=== PATIENT | female | born 1980 | race Caucasian/White ===

== ENCOUNTER 2024-12-01 00:40 | Day surgery (SDC) | payer OTHER, SELFPAY ==
--- OUTSIDE RECORDS SUMMARY | 2015-08-15 19:00 | XMS_ITS | Continuity of Care Document ---
Author Organization [facility] Address [address] [facility] [place] [address] Phone Care Team Providers Care Count Team Clerk Name Role Phone MD FOY GILBERT Unavailable Unavailable Advance Directives Directive Yes / No Effective Date File Name No Information Encounters Encounter Description Practice Location Reason(s) For Visit Diagnoses Date Provider Providers Copied on Encounter [facility], [address] [facility], [place], [place], [id number], [place] tel:[phone] [facility] INPATIENT No Information MD VALENTINA FOY. [address] [place] [address], [id number], [place]. tel:[phone] Referring Provider: AUTUMN Hernandez, [address] [place], [address]. tel:[phone] Family History Family Member Type Diagnosis Age At Onset No Information Payers Payer name Insurance type Covered libertarian ID Authoriza tigisel(s) [facility] PPO [id number] Social History Type Description Quantity Date Captured Comments Sex Female Smoking Status No Information Chief Complaint And Reason For Visit No Information History Of Present Illness Encounter Date Complaint History Of Prese nt Illness No Information Instructions Date Instruction Additional Infor mation No Information Assessments Type Assessment Date No Information
[2024-11-22 10:23] VITALS: BMI 22.6
--- NOTE | 2024-11-22 10:30 | PC.NURSE ---
Report to the Outpatient Waiting Room, entrance under the green pavilion located off [facility], at time __1000_ on date _12/01/24. Planned Procedure Time: __1200.? Time changes happen often and if your time is changed the preop area will call you the afternoon before. - You and your visitor will be asked to self-screen and do not enter if you have any COVID symptoms. Please call surgeon if you need to reschedule. - A mask is optional within the hospital at this time. Patients may have clear liquids (water, carbonated beverages, clear teas, apple juice) until 3 hours prior to surgery with a maximum of 20 ounces. - No food from midnight until time of surgery and no smoking, or chewing tobacco (or any form of nicotine). No chewing gum, candy or mints. - Infants may have breast milk until 4 hours before surgery, infant formula 6 hours prior to surgery. - Children will be allowed to drink immediately following surgery.? If applicable, please bring a bottle or sippy cup to assist with drinking. Juice, water, soda, and popsicles are readily available.? For infants on formula, please bring formula the day of surgery.? Pacifiers are allowed. Take only the following medications with a SIP of water on the morning of surgery: NONE DO NOT STOP ANY OF YOUR OTHER PRESCRIPTION MEDICATIONS PRIOR TO SURGERY EXCEPT THE FOLLOWING Hold all vitamins and supplements for 3 days per anesthesiologist. Medications to discontinue per physician Date to take last dose Please no make-up, nail syriac, hairspray, perfume, deodorant, or body powder the day of surgery.? No jewelry (including any body piercings) or valuables the day of surgery, leave them at home.? Please take a shower or bath the night before, or the morning of, surgery with an antibacterial soap.? Wear comfortable, loose fitting clothing.? Children are encouraged to wear pajamas. - Jewelry must be removed prior to entering the operating room.? Rings and piercings that are not removed may be cut off. - The hospital will not accept responsibility for valuables.? - Please leave all valuables, including medications, at home the day of surgery. If you are going home after surgery, a licensed hydraulic lift driver must drive you home.? - NO public transportation without another adult if you receive anesthesia. - We recommend that an adult stay with you for 24 hours following discharge. - We also recommend that you do not drive, make important decision, drink alcoholic beverages, or take any drugs that were not prescribed by your health care provider for at least 24 hours after your discharge time. For Pediatric surgeries, we recommend two adults accompany the child home. Follow any additional instructions given to you from your surgeon. Telephone instructions given to PATIENT_and asked if any additional questions and then verbalized understanding. Patient advised to call surgeon office or pre surgery nurse liaison [phone] if any additional questions.
--- OUTSIDE RECORDS SUMMARY | 2024-11-29 10:34 | XMS_ITS | Encounter Summary ---
Author Organization [facility] Healthcare Address [address] [place] [address] Care Team Providers Care Custodial Manager Name Role Phone Aldo Flowers Primary Care Provider [phone] Reason for Referral * MRI/CAT/PET Scan (Routine) - Closed Specialty Diagnoses / Procedures Referred By Tiffanie knowles Referred To Contact Radiology Diagnoses Dense breast tissue on mammogram, unspecified type Procedures MRI BREAST WWO CONTRAST Aldo Flowers PA [address] [place] [address] DR NUNEZ [address] [place] [address] Phone: tel: fax: [address] [phone] Referral ID Status Reason Start Date Expiration Date Visits Re quested Visits Authorized [id number] Closed 11/15/2024 01/13/2025 1 1 Reason for Visit * MRI/CAT/PET Scan (Routine) - Closed Specialty Diagnoses / Procedures Referred By Tiffanie knowles Referred To Contact Radiology Diagnoses Dense breast tissue on mammogram, unspecified type Procedures MRI BREAST WWO CONTRAST Aldo Flowers PA [address] [place] [address] DR NUNEZ [address] [place] [address] Phone: tel: fax: [address] [phone] Referral ID Status Reason Start Date Expiration Date Visits Re quested Visits Authorized [id number] Closed 11/15/2024 01/13/2025 1 1 Encounter Details Date Type Department Care Team (Latest Contact Info) Description 11/29/2024 10:34 AM CDT - 11/29/2024 11:59 PM CDT Hospital Encounter [facility] [address] [place] [address] Dense breast tissue on mammogram, unspecified type Discharge Disposition: Discharge to home or self care Social History Tobacco Use Types Packs/Day Years Used Date Smoking Tobacco: Former Cigarettes Q uit: 07/25/2022 Alcohol Use Standard Drinks/Week Comments Yes 1 (1 standard drink = 0.6 oz pur e alcohol) monthly or less Humiliation, Afraid, Rape, and Kick questionnair e Answer Date Recorded Fear of Current or Ex-Partner No Emotionally Abused No 04/25/2020 Physically Abused No 04/25/2020 Sexually Abused No 04/25/2020 Social Connection and Isolation Panel Answer Date Recorded Frequency of Communication with Friends and Fami ly Patient declined 04/25/2020 Frequency of Social Gatherings with Friends and Family Patient declined 04/25/2020 Attends Confucianism Services Patient declined 03/31 Active Member of Clubs or Organizations Patient declined 04/25/2020 Attends Club or Organization Meetings Patient de clined 04/25/2020 Marital Status Patient declined 04/25/2020 AUDIT-C Answer Date Recorded Q1: How often do you have a drink containing alc ohol? Monthly or less 07/15/2023 Q2: How many drinks containi ng alcohol do you have on a typical day when you are drinking? 1 or 2 07/15/2023 Q3: How often do you have si x or more drinks on one occasion? Never 07/15/2023 PHQ-2 Answer Date Recorded PHQ-2 Total Score (If total score is 3 or more points, staff should administer the PHQ-9) 0 07/15/2023 [facility] [place] [facility] - Occupational Stress Questionnaire Answer Date Recorded Feeling of Stress Very much 04/25/2020 Exercise Vital Sign Answer Date Recorde d Days of Exercise per Week 0 days 01/27/ 2021 Minutes of Exercise per Session 0 min 04/25/2020 Hunger Vital Sign Answer Date Recorded Worried About Running Out of Food in the Last Ye ar Never true 04/25/2020 Ran Out of Food in the Last Year Never true 04/25/2020 PRAPARE - Transportation Answer Date Re corded Lack of Transportation (Medical) No 04/25/2020 Lack of Transportation (Non-Medical) No 04/25/2020 Comments No Sex and Gender Information Value Date Recorded Sex Assigned at Not on file Legal Sex Female 8:56 PM MANAGER VIDEO GAMES Gender Identity Female 02/18/2023 8:40 AM MANAGER VIDEO GAMES Sexual Orientation Choose not to disclose 2022 8:40 AM MANAGER VIDEO GAMES documented as of this encounter Medications at Time of Discharge escitalopram (LEXAPRO) 10 mg tabletIndications :Prolonged grief disorder,Moderate episode of recurrent major depressive disorder (HCC) Take 1 tablet (10 mg total) by mouth daily 90 tablet 3 08/12/2022 documented as of this encounter Discharge Disposition Disposition Code Departure Means Destination Discharge to home or self care documented in this encounter Plan of Treatment Pending Results Name Type Priority Associated Diagnoses Date /Time MRI BREAST WWO CONTRAST Imaging Schedule Routine, Read Routine (OP Routine) Dense breast tissue on mammogram, unspecified type 11/29/2024 12:48 PM CDT Scheduled Orders Name Type Priority Associated Diagnoses Orde r Schedule MRI BREAST WWO CONTRAST Imaging Schedule Routine, Read Routine (OP Routine) Dense Breast Tissue On Mammogram, Unspecified Type Once for 1 Occurrences starting 11/29/2024 until 11/29/2024 documented as of this encounter Visit Diagnoses Diagnosis Dense breast tissue on mammogram, unspecified type documented in this encounter Administered Medications Inactive Administered Medications - up to 3 most recent administrations Medication Order MAR Action Action Date Dose Rate Site gadoterate meglumine injection 15 mL 15 mL, intravenous, Once in imaging, contrast, Starting on Thu11/29/24 at 1213, For 1 dose Contrast Given 11/29/2024 12:37 PM CDT 11 mL sodium chloride 0.9% flush 50 mL 50 mL, intravenous, Once in imaging, line care, Starting on Thu11/29/24 at 1214, For 1 dose Given 11/29/2024 12:37 PM CDT 50 mL documented in this encounter Care Teams Custodial Manager Relationship Specialty Start Date End Date Aldo Flowers PA PCP - General Family Medicine 09/16/22 documented as of this encounter
[2024-12-01] VITALS (7 sets, daily range): BP systolic 111–132; BP diastolic 68–82; PULSE 77–106; RESP 14–20; TEMP 36.7–37.2; O2SAT 98–100
--- OUTSIDE RECORDS SUMMARY | 2024-12-01 00:43 | XMS_ITS | Encounter Summary ---
Author Organization [facility] Address [address] [place] [address] Care Team Providers Care Jewel Staker Name Role Phone Lavinia Tran MD Primary Care Provider Unava ilable Encounter Details Date Type Department Care Team (Late st Contact Info) Description 12/25/2004 Outpatient Historical [facility] [address] [place] [phone] Lavinia Tran [address] [place] [address] Social History Tobacco Use Types Packs/Day Years Used Date Smoking Tobacco: Never Assessed Comments Unknown Sex and Gender Information Value Date Recorded Sex Assigned at Not on file Legal Sex Female 5:00 AM SEALING AND CANCELING MACHINE OPERATOR Gender Identity Not on file Sexual Orientation Not on file documented as of this encounter Plan of Treatment Not on file documented as of this encounter Visit Diagnoses Not on filedocumented in this encounter Care Teams Jewel Staker Relationship Specialty Start Date End Date Lavinia Tran MD PCP - General 11/14/04 documented as of this encounter
--- OUTSIDE RECORDS SUMMARY | 2024-12-01 00:43 | XMS_ITS | Encounter Summary ---
Author Organization [facility] Address [address] [place] [address] Care Team Providers Care Head Athletic Trainer/Strength Coach Name Role Phone Lavinia Tran MD Primary Care Provider Unava ilable Encounter Details Date Type Department Care Team (Late st Contact Info) Description 12/16/2004 [facility] Lavinia Tran [address] [place] [address] Social History Tobacco Use Types Packs/Day Years Used Date Smoking Tobacco: Never Assessed Comments Unknown Sex and Gender Information Value Date Recorded Sex Assigned at Not on file Legal Sex Female 5:00 AM SUPERVISOR BRIAR SHOP Gender Identity Not on file Sexual Orientation Not on file documented as of this encounter Plan of Treatment Not on file documented as of this encounter Visit Diagnoses Not on filedocumented in this encounter Care Teams Head Athletic Trainer/Strength Coach Relationship Specialty Start Date End Date Lavinia Tran MD PCP - General 11/14/04 documented as of this encounter
--- OUTSIDE RECORDS SUMMARY | 2024-12-01 00:43 | XMS_ITS | Encounter Summary ---
Author Organization [facility] Address [address] [place] [address] Care Team Providers Care Business Solutions Analyst Name Role Phone Lavinia Tran MD Primary Care Provider Unava ilable Encounter Details Date Type Department Care Team (Late st Contact Info) Description 03/05/2005 Outpatient Historical [facility] Lavinia Tran [address] [place] [address] SUPERVIS OTHER NORMAL PREG (Primary Dx) Social History Tobacco Use Types Packs/Day Years Used Date Smoking Tobacco: Never Assessed Comments Unknown Sex and Gender Information Value Date Recorded Sex Assigned at Not on file Legal Sex Female 5:00 AM MARITIME GUARD Gender Identity Not on file Sexual Orientation Not on file documented as of this encounter Plan of Treatment Not on file documented as of this encounter Visit Diagnoses Diagnosis Supervision of other normal - Primary documented in this encounter Care Teams Business Solutions Analyst Relationship Specialty Start Date End Date Lavinia Tran MD PCP - General 11/14/04 documented as of this encounter
--- OUTSIDE RECORDS SUMMARY | 2024-12-01 00:43 | XMS_ITS | Encounter Summary ---
Author Organization [facility] Address [address] [place] [address] Care Team Providers Care Seals Engraver Name Role Phone Lavinia Tran MD Primary Care Provider Unava ilable Encounter Details Date Type Department Care Team (Late st Contact Info) Description 10/01/2004 Outpatient Historical [facility] [address] [place] [address] Costa Garcia MD [address] [address] Social History Tobacco Use Types Packs/Day Years Used Date Smoking Tobacco: Never Assessed Comments Unknown Sex and Gender Information Value Date Recorded Sex Assigned at Not on file Legal Sex Female 5:00 AM DCS ENGINEER Gender Identity Not on file Sexual Orientation Not on file documented as of this encounter Plan of Treatment Not on file documented as of this encounter Visit Diagnoses Not on filedocumented in this encounter Care Teams Seals Engraver Relationship Specialty Start Date End Date Lavinia Tran MD PCP - General 11/14/04 documented as of this encounter
--- OUTSIDE RECORDS SUMMARY | 2024-12-01 00:43 | XMS_ITS | Encounter Summary ---
Author Organization [facility] Address [address] [place] [address] Care Team Providers Care Barrel Lapper Name Role Phone Lavinia Tran MD Primary Care Provider Unava ilable Encounter Details Date Type Department Care Team (Late st Contact Info) Description 02/19/2005 Outpatient Historical [facility] [address] [place] [phone] Lavinia Tran [address] [place] [address] Social History Tobacco Use Types Packs/Day Years Used Date Smoking Tobacco: Never Assessed Comments Unknown Sex and Gender Information Value Date Recorded Sex Assigned at Not on file Legal Sex Female 5:00 AM RODENT CONTROL WORKER Gender Identity Not on file Sexual Orientation Not on file documented as of this encounter Plan of Treatment Not on file documented as of this encounter Visit Diagnoses Not on filedocumented in this encounter Care Teams Barrel Lapper Relationship Specialty Start Date End Date Lavinia Tran MD PCP - General 11/14/04 documented as of this encounter
--- OUTSIDE RECORDS SUMMARY | 2024-12-01 00:43 | XMS_ITS | Encounter Summary ---
Author Organization [facility] Address [address] [place] [address] Care Team Providers Care Roving Teller Name Role Phone Lavinia Tran MD Primary Care Provider Unava ilable Encounter Details Date Type Department Care Team (Late st Contact Info) Description 10/02/2004 Outpatient Historical [facility] [address] Lavinia Tran [address] [place] [address] SUPERVIS OTHER NORMAL PREG (Primary Dx) Social History Tobacco Use Types Packs/Day Years Used Date Smoking Tobacco: Never Assessed Comments Unknown Sex and Gender Information Value Date Recorded Sex Assigned at Not on file Legal Sex Female 5:00 AM CIRCULAR SAW EDGE FUSER Gender Identity Not on file Sexual Orientation Not on file documented as of this encounter Plan of Treatment Not on file documented as of this encounter Visit Diagnoses Diagnosis Supervision of other normal - Primary documented in this encounter Care Teams Roving Teller Relationship Specialty Start Date End Date Lavinia Tran MD PCP - General 11/14/04 documented as of this encounter
--- OUTSIDE RECORDS SUMMARY | 2024-12-01 00:43 | XMS_ITS | Encounter Summary ---
Author Organization [facility] Address [address] [place] [address] Care Team Providers Care Picu Nurse Name Role Phone Lavinia Tran MD Primary Care Provider Unava ilable Encounter Details Date Type Department Care Team (Latest Contact Info) Description 03/18/2005 Outpatient Historical [facility] [address] Costa Garcia MD [address] [place] [address] PREG STATE, INCIDENTAL (Primary Dx) Social History Tobacco Use Types Packs/Day Years Used Date Smoking Tobacco: Never Assessed Comments Unknown Sex and Gender Information Value Date Recorded Sex Assigned at Not on file Legal Sex Female 5:00 AM CLIENT ENGAGEMENT SPECIALIST Gender Identity Not on file Sexual Orientation Not on file documented as of this encounter Plan of Treatment Not on file documented as of this encounter Visit Diagnoses Diagnosis state, incidental- Primary documented in this encounter Care Teams Picu Nurse Relationship Specialty Start Date End Date Lavinia Tran MD PCP - General 11/14/04 documented as of this encounter
--- OUTSIDE RECORDS SUMMARY | 2024-12-01 00:43 | XMS_ITS | Encounter Summary ---
Author Organization [facility] Address [address] [place] [address] Care Team Providers Care Time Clock Inspector Name Role Phone Lavinia Tran MD Primary Care Provider Unava ilable Encounter Details Date Type Department Care Team (Late st Contact Info) Description 02/05/2005 Outpatient Historical [facility] [address] [place] [phone] Lavinia Tran [address] [place] [address] Social History Tobacco Use Types Packs/Day Years Used Date Smoking Tobacco: Never Assessed Comments Unknown Sex and Gender Information Value Date Recorded Sex Assigned at Not on file Legal Sex Female 5:00 AM CARD CLEANER Gender Identity Not on file Sexual Orientation Not on file documented as of this encounter Plan of Treatment Not on file documented as of this encounter Visit Diagnoses Not on filedocumented in this encounter Care Teams Time Clock Inspector Relationship Specialty Start Date End Date Lavinia Tran MD PCP - General 11/14/04 documented as of this encounter
--- OUTSIDE RECORDS SUMMARY | 2024-12-01 00:43 | XMS_ITS | Encounter Summary ---
Author Organization [facility] Address [address] [place] [address] Care Team Providers Care Head Operator Name Role Phone Lavinia Tran MD Primary Care Provider Unava ilable Encounter Details Date Type Department Care Team (Late st Contact Info) Description 01/30/2005 Outpatient Historical [facility] [address] [place] [address] Li Carreno MD [address] [place] [address] Social History Tobacco Use Types Packs/Day Years Used Date Smoking Tobacco: Never Assessed Comments Unknown Sex and Gender Information Value Date Recorded Sex Assigned at Not on file Legal Sex Female 5:00 AM NURSING PROJECT COORDINATOR Gender Identity Not on file Sexual Orientation Not on file documented as of this encounter Plan of Treatment Not on file documented as of this encounter Visit Diagnoses Not on filedocumented in this encounter Care Teams Head Operator Relationship Specialty Start Date End Date Lavinia Tran MD PCP - General 11/14/04 documented as of this encounter
--- OUTSIDE RECORDS SUMMARY | 2024-12-01 00:43 | XMS_ITS | Encounter Summary ---
Author Organization [facility] Address [address] [place] [address] Care Team Providers Care Fretted Instrument Maker Hand Name Role Phone Lavinia Tran MD Primary Care Provider Unava ilable Encounter Details Date Type Department Care Team (Late st Contact Info) Description 03/18/2005 Outpatient Historical [facility] Costa Garcia MD [address] [place] [phone] SUPERVIS OTHER NORMAL PREG (Primary Dx) Social History Tobacco Use Types Packs/Day Years Used Date Smoking Tobacco: Never Assessed Comments Unknown Sex and Gender Information Value Date Recorded Sex Assigned at Not on file Legal Sex Female 5:00 AM GASOLINE TRUCK OPERATOR Gender Identity Not on file Sexual Orientation Not on file documented as of this encounter Plan of Treatment Not on file documented as of this encounter Visit Diagnoses Diagnosis Supervision of other normal - Primary documented in this encounter Care Teams Fretted Instrument Maker Hand Relationship Specialty Start Date End Date Lavinia Tran MD PCP - General 11/14/04 documented as of this encounter
--- OUTSIDE RECORDS SUMMARY | 2024-12-01 00:43 | XMS_ITS | Encounter Summary ---
Author Organization [facility] Address [address] [place] [address] Care Team Providers Care Winding Department Supervisor Name Role Phone Lavinia Tran MD Primary Care Provider Unava ilable Encounter Details Date Type Department Care Team (Late st Contact Info) Description 11/27/[address] [facility] [address] [place] [address] Bart De La Fuente MD NO ADDRESS ON FILE Social History Tobacco Use Types Packs/Day Years Used Date Smoking Tobacco: Never Assessed Comments Unknown Sex and Gender Information Value Date Recorded Sex Assigned at Not on file Legal Sex Female 5:00 AM BRIMMER BLOCKER Gender Identity Not on file Sexual Orientation Not on file documented as of this encounter Plan of Treatment Not on file documented as of this encounter Visit Diagnoses Not on filedocumented in this encounter Care Teams Winding Department Supervisor Relationship Specialty Start Date End Date Lavinia Tran MD PCP - General 11/14/04 documented as of this encounter
--- OUTSIDE RECORDS SUMMARY | 2024-12-01 00:43 | XMS_ITS | Encounter Summary ---
Author Organization [facility] Address [address] [place] [address] Care Team Providers Care Chief Controller Center Name Role Phone Lavinia Tran MD Primary Care Provider Unava ilable Encounter Details Date Type Department Care Team (Late st Contact Info) Description 01/30/2005 Outpatient Historical [facility] Lavinia Tran [address] [place] [address] SCREENING NEC (Primary Dx) Social History Tobacco Use Types Packs/Day Years Used Date Smoking Tobacco: Never Assessed Comments Unknown Sex and Gender Information Value Date Recorded Sex Assigned at Not on file Legal Sex Female 5:00 AM SCRAP HOIST OPERATOR Gender Identity Not on file Sexual Orientation Not on file documented as of this encounter Plan of Treatment Not on file documented as of this encounter Visit Diagnoses Diagnosis Other screening- Primary Other specified screening documented in this encounter Care Teams Chief Controller Center Relationship Specialty Start Date End Date Lavinia Tran MD PCP - General 11/14/04 documented as of this encounter
--- OUTSIDE RECORDS SUMMARY | 2024-12-01 00:43 | XMS_ITS | Encounter Summary ---
Author Organization [facility] Address 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 Gender Identity Not on file Sexual Orientation Not on file documented as of this encounter Plan of Treatment Not on file documented as of this encounter Procedures Procedure Name Priority Date/Time Associated Diagnosis Comments GLUCOSE TOLERANCE 1 HR GESTATIONAL Routine 01/22/2005 1:15 PM CDT HEMOGLOBIN AND HEMATOCRIT Routine 01/22/2005 1:15 PM CDT documented in this encounter Results * HEMOGLOBIN AND HEMATOCRIT (01/22/2005 1:15 PM CDT) HEMOGLOBIN 12.1 11.8 - 14.8 g/dL INTERFACE SYSTEM HEMATOCRIT 35.7 35.5 - 44.0 % INTERFACE SYSTEM 01/22/2005 1:15 PM CDT Maria Fernanda Theodosia HEMATOLOGY ORDERABLES Final Res ult INTERFACE SYSTEM Refer to clinic/hospital department * GLUCOSE TOLERANCE 1 HR GESTATIONAL (01/22/2005 1:15 PM CDT) GLUCOSE 1 HR OBSTETRIC 104 65 - 139 mg/dL INTERFACE SYSTEM 01/22/2005 1:15 PM CDT Maria Fernanda Theodosia CHEMISTRY ORDERABLES Final Resu lt Performing Organization Address City/[facility] Co de Phone Number INTERFACE SYSTEM Refer to clinic/hospital department documented in this encounter Visit Diagnoses Diagnosis state, incidental- Primary documented in this encounter Care Teams Thermodynamics Professor Relationship Specialty Start Date End Date Lavinia Tran MD PCP - General 11/14/04 documented as of this encounter
--- OUTSIDE RECORDS SUMMARY | 2024-12-01 00:43 | XMS_ITS | Encounter Summary ---
Author Organization Address 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
--- OUTSIDE RECORDS SUMMARY | 2024-12-01 00:43 | XMS_ITS | Encounter Summary ---
Author Organization [facility] Address [address] [place] [address] Care Team Providers Care Service Order Clerk Name Role Phone Lavinia Tran MD Primary Care Provider Unava ilable Encounter Details Date Type Department Care Team (Late st Contact Info) Description 12/05/2004 Outpatient Historical [facility] and [facility] [address] [place] [address] [place] [address] Li Carreno MD [address] [place] [address] Social History Tobacco Use Types Packs/Day Years Used Date Smoking Tobacco: Never Assessed Comments Unknown Sex and Gender Information Value Date Recorded Sex Assigned at Not on file 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
--- OUTSIDE RECORDS SUMMARY | 2024-12-01 00:43 | XMS_ITS | Encounter Summary ---
Author Organization [facility] Address 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
--- OUTSIDE RECORDS SUMMARY | 2024-12-01 00:43 | XMS_ITS | Encounter Summary ---
Author Organization [facility] Address [address] [place] [address] Care Team Providers Care Presidential Helicopter Crew Chief Name Role Phone Lavinia Tran MD Primary Care Provider Unava ilable Encounter Details Date Type Department Care Team (Late st Contact Info) Description 03/05/2005 Outpatient Historical [facility] [address] [place] [phone] Lavinia Tran [address] [place] [address] Social History Tobacco Use Types Packs/Day Years Used Date Smoking Tobacco: Never Assessed Comments Unknown Sex and Gender Information Value Date Recorded Sex Assigned at Not on file 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
--- OUTSIDE RECORDS SUMMARY | 2024-12-01 00:43 | XMS_ITS | Encounter Summary ---
Author Organization [facility] Address 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
--- OUTSIDE RECORDS SUMMARY | 2024-12-01 00:43 | XMS_ITS | Encounter Summary ---
Author Organization [facility] Address 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
--- OUTSIDE RECORDS SUMMARY | 2024-12-01 00:43 | XMS_ITS | Encounter Summary ---
Author Organization [facility] Address 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
--- OUTSIDE RECORDS SUMMARY | 2024-12-01 00:43 | XMS_ITS | Encounter Summary ---
Author Organization [facility] Address 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
--- OUTSIDE RECORDS SUMMARY | 2024-12-01 00:43 | XMS_ITS | Encounter Summary ---
Author Organization [facility] Address 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 Gender Identity Not on file Sexual Orientation Not on file documented as of this encounter Plan of Treatment Not on file documented as of this encounter Procedures Procedure Name Priority Date/Time Associated Diagnosis Comments DRUGS OF ABUSE PANEL 7 Routine 10/01/2004 10:42 AM CDT URINALYSIS W/REFLEX MICROSCOPIC Routine 10/01/2004 10:42 AM CDT HEPATITIS B SURFACE ANTIGEN Routine 10/01/2004 10:39 AM CDT RUBELLA IGG Routine 10/01/2004 10:39 AM CDT CBC WITH DIFFERENTIAL Routine 10/01/2004 10:39 AM CDT CBC WITH DIFFERENTIAL Routine 10/01/2004 10:39 AM CDT RPR Routine 10/01/2004 10:39 AM CDT documented in this encounter Results * (ABNORMAL) URINALYSIS (10/01/2004 10:42 AM CDT) COLOR UA Yellow INTERFACE SYSTEM CLARITY UA Slt. Cloudy(A) Clear INTERFACE SYSTEM SPECIFIC GRAVITY UA 1.015 1.001 - 1.035 INTERFACE SYSTEM PH UA 6.0 5.0 - 8.0 INTERFACE SYSTEM LEUKOCYTE ESTERASE UA Negative Negative INTERFACE SYSTEM NITRITE UA Negative Negative INTERFACE SYSTEM PROTEIN UA Negative Negative INTERFACE SYSTEM GLUCOSE UA Negative Negative INTERFACE SYSTEM KETONES UA Negative Negative INTERFACE SYSTEM UROBILINOGEN UA <1 <1 mg/dL INTE RFACE SYSTEM Comment: Effective 09/11/04, Urobilinogen will be reported in mg/dL resulting in a n increased sensitivity at lower urobilinogen levels. Previously, results were reported in Maribel unit(EU)/dL. 1+ results previously reported as 1 EU/dL (normal) will become 2 mg/dL (abnormal). BILIRUBIN UA Negative Negative INTERFA CE SYSTEM BLOOD UA 3+(A) Negative INTERFACE SYSTEM WBC UA 1 0 - 5 /HPF INTERFACE SYSTEM RBC UA >100(H) 0 - 4 /HPF INTERFACE SYSTEM EPITHELIAL CELLS, URINE 2-5 /HPF INTERFACE SYSTEM AMORPHOUS CRYSTAL Rare /HPF INTERFACE SYSTEM 10/01/2004 10:4 2 AM CDT Lavinia Clements Tran URINE ORDERABLES Final Result INTERFACE SYSTEM Refer to clinic/hospital department * DRUGS OF ABUSE PANEL 7 (10/01/2004 10:42 AM CDT) COMMENT, TOXICOLOGY See Separate Comment INTERFACE SYSTEM Comment: Urine sample was not handled as a legal specimen and was received without a chain of custody. The result should be used only for medical purposes. False positive and erroneous results can occur due to cross-reacting sub stances and other factors. Depending on the clinical context, confirmation of all presumptive positive results by a more specific alternate method is recommended. A negative result indicates the analyte, if present, is below the screening threshold. Drug Ref. Range Screening Threshold Amphetamines Negative 1000 ng/mL Barbituates Negative 200 ng/mL Benzodiazepines Negative 300 ng/mL Cannabinoids Negative 50 ng/mL Cocaine Metabolites Negative 300 ng/mL Opiates Negative 300 ng/mL Phencycldine Negative 25 ng/mL The cut-off threshold, known cross-reactive compounds, drugs,and specificity information for each of the urine drugs of abuse are available on the [facility] [place]an[facility] at: [email or web address] Select: Drugs of Abuse ? [facility] To inquire about any potential cross-reactivity of a specific drug not listed at this site, please contact the Chemistry Lab at . AMPHETAMINE QUAL, URINE Negative INTERFACE SYSTEM BARBITURATE QUAL, URINE Negative INTERFACE SYSTEM BENZODIAZEPINE QUAL, URINE Negative INTERFACE SYSTEM CANNABINOIDS QUAL, URINE Presumptive Positive INTERFACE SYSTEM COCAINE QUAL URINE Negative INTERFACE SYSTEM OPIATE QUAL, URINE Negative INTERFACE SYSTEM PCP QUAL, URINE Negative INTE RFACE SYSTEM 10/01/2004 10:4 2 AM CDT Lavinia Tran URINE ORDERABLES Final Result INTERFACE SYSTEM Refer to clinic/hospital department * (ABNORMAL) CBC WITH DIFFERENTIAL (10/01/2004 10:39 AM CDT) NEUTROPHILS 73(H) 45 - 70 % INTERFAC E SYSTEM LYMPHOCYTES 16 16 - 45 % INTERFAC E SYSTEM MONOCYTES 9 3 - 13 % INTERFACE SYSTEM EOSINOPHILS 2 0 - 7 % INTERFAC E SYSTEM BASOPHILS 0 0 - 2 % INTERFACE SYSTEM NEUTROPHIL ABSOLUTE 5.70 1.90 - 7.00 K/uL INTERFACE SYSTEM LYMPHOCYTE ABSOLUTE 1.26 0.70 - 4.50 K/uL INTERFACE SYSTEM MONOCYTE ABSOLUTE 0.71 0.10 - 1.30 K/uL INTERFACE SYSTEM EOSINOPHIL ABSOLUTE 0.17 0.00 - 0.70 K/uL INTERFACE SYSTEM BASOPHILS ABSOLUTE 0.02 0.00 - 0.20 K/uL INTERFACE SYSTEM 10/01/2004 10:3 9 AM CDT Lavinia Tran HEMATOLOGY ORDERABLES Final Res ult Performing Organization Address [facility] Phone Number INTERFACE SYSTEM Refer to clinic/hospital department * CBC WITH DIFFERENTIAL (10/01/2004 10:39 AM CDT) WBC 7.9 4.0 - 9.8 K/uL INTERFACE SYSTEM RBC 3.93 3.90 - 4.90 M/uL INTERFACE SYSTEM HEMOGLOBIN 12.7 11.8 - 14.8 g/dL INTERFACE SYSTEM HEMATOCRIT 37.7 35.5 - 44.0 % INTERFACE SYSTEM MCV 95.9 82.0 - 99.0 fL INTERFACE SYSTEM MCH 32.3 27.2 - 32.6 pg INTERFACE SYSTEM MCHC 33.7 31.5 - 35.5 % INTERFACE SYSTEM RDW 12.9 11.5 - 14.5 % INTERFACE SYSTEM RDW-STDEV 45.4 37.1 - 48.7 fL INTERFACE SYSTEM PLATELETS 206 140 - 350 K/uL INTERFACE SYSTEM MPV 10.7 9.3 - 12.4 fL INTERFACE SYSTEM 10/01/2004 10:3 9 AM CDT us Lavinia Clements Tran HEMATOLOGY ORDERABLES Final Res ult Performing Organization Address [facility] Phone Number INTERFACE SYSTEM Refer to clinic/hospital department * HEPATITIS B SURFACE ANTIGEN (10/01/2004 10:39 AM CDT) Pathologist [facility] HEPATITIS B SURFACE AG NON-REACT VIGNESH NON-REACT VIGNESH INTERFACE SYSTEM Comment: Lab test performed by: [employer] [address] SANDIP NORWOOD MD 10/01/2004 10:3 9 AM CDT us Lavinia Clements Marc CHEMISTRY ORDERABLES Final Resu lt Performing Organization Address [facility] Phone Number INTERFACE SYSTEM Refer to clinic/hospital department * RUBELLA IGG (10/01/2004 10:39 AM CDT) Pathologist [facility] RUBELLA IGG <0.91 EIA Value INTERFAC E SYSTEM Comment: EIA VALUE EXPLANATION OF TEST RESULTS --------- <0.91 NEGATIVE - NO RUBELLA IGG ANTIBODY DETECTED. 0.91 - 1.09 EQUIVOCAL > OR = 1.10 POSITIVE - RUBELLA IGG ANTIBODY DETECTED. THE PRESENCE OF RUBELLA IGG ANTIBODY SUGGESTS IMMUNIZATION OR PAST OR CURRENT INFECTION WITH RUBELLA VIRUS. Lab test performed by: [employer] [address] SANDIP NORWOOD MD 10/01/2004 10:3 9 AM CDT us Lavinia Tran CHEMISTRY ORDERABLES Final Resu lt INTERFACE SYSTEM Refer to clinic/hospital department * RPR (10/01/2004 10:39 AM CDT) RPR NON-REACT VIGNESH NON-REACT VIGNESH INTERFACE SYSTEM Comment: Lab test performed by: [employer] [facility] [id number] [place] [address] SANDIP NORWOOD MD 10/01/2004 10:3 9 AM CDT us Lavinia Tran CHEMISTRY ORDERABLES Final Resu lt Performing Organization Address City/[facility]/ZIP Co de Phone Number INTERFACE SYSTEM Refer to clinic/hospital department documented in this encounter Visit Diagnoses Diagnosis state, incidental- Primary documented in this encounter Care Teams Machine Wiper Relationship Specialty Start Date End Date Lavinia Tran MD PCP - General 11/14/04 documented as of this encounter
--- OUTSIDE RECORDS SUMMARY | 2024-12-01 00:43 | XMS_ITS | Encounter Summary ---
Author Organization [facility] Address 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
--- OUTSIDE RECORDS SUMMARY | 2024-12-01 00:43 | XMS_ITS | Encounter Summary ---
Author Organization [facility] Address 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
--- OUTSIDE RECORDS SUMMARY | 2024-12-01 00:43 | XMS_ITS | Encounter Summary ---
Author Organization [facility] Address 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
--- OUTSIDE RECORDS SUMMARY | 2024-12-01 00:44 | XMS_ITS | Clinical Summary ---
Author Organization [facility] Address [address] [place] [address] Care Team Providers Care Child Care Specialist Name Role Phone Aldo Flowers Primary Care Provider [phone] Allergies Active Allergy Reactions Criticality Noted Date Comments Amoxicillin-Pot Clavulanate Rash Medium 03/15/20 10 Medications escitalopram (LEXAPRO) 10 mg tabletIndicatio ns:Prolonged grief disorder,Modera te episode of recurrent major depressive disorder (HCC) Take 1 tablet (10 mg total) by mouth daily 90 tablet 3 3 Active Additional Information Patient not taking.Reported on 07/25/2024 Active Problems Problem Noted Date Diagnosed Date History of smoking 07/15/2023 Moderate episode of recurrent major depressive d isorder 08/12/2022 Assessment & Plan (01/12/2023 1:47 PM CDT): Chronic condition improving Continue Lexapro. 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 Assessment & Plan (08/12/2022 4:30 PM CDT): Chronic condition not well controlled Start Lexapro. Mild episode of recurrent major depressive disor tao 04/25/2020 Situational anxiety 04/25/2020 Varicose veins of left lower extremity with pain 09/08/2018 Assessment & Plan (09/08/2018 4:49 PM CDT): Heat as tolerated, Compression socks for prevention Bilateral sacroiliitis 12/14/2017 Resolved Problems Problem Noted Date Diagnosed Date Resolved Date Cigarette nicotine dependenc e without complication 04/25/2020 07/15/2023 Encounters Date Type Department Care Team Description 11/29/2024 10:34 AM CDT - 11/29/2024 11:59 PM CDT Hospital Encounter [facility] - Imaging [address] [place] [address] Dense breast tissue on mammogram, unspecified type Discharge Disposition: Discharge to home or self care 10/28/2024 Telephone [facility] [place] [address] [place] [address] Aldo Flowers PA Additional Services Or Orders 10/26/2024 10:33 AM CDT - 10/26/2024 11:59 PM CDT Hospital Encounter [facility] [address] [place] [address] Screening mammogram, encounter for; H/O bilateral breast implants Discharge Disposition: Discharge to home or self care from Last 3 Months Immunizations Immunization Administration Dates Next Due H1N1 Inj 12/28/2008 Influenza, Quadrivalent, Spl it, Preservative Free, Intramuscular 02/16/2019 Influenza, Unspecified 01/12/2023(Deferr ed: Patient decision),11/28/2021(Deferred: Patient decision) MMR 08/22/2015 Tdap 10/05/2022,06/07/2009 Surgical History Surgery Date Site/Laterality Comments COMBINED AUGMENTATION MAMMAP LASTY AND ABDOMINOPLASTY AUGMENTATION MAMMAPLASTY 08/22/2011 Bilateral Subpectoral silicone Medical History Medical History Date Comments Anxiety Depression Family History Medical History Relation Name Comments Hypertension Father Hypertension Mother Breast cancer Neg Hx Relation Name Status Comments Brother 1 Alive Brother 2 Alive Brother 3 Alive Daughter Alive Father Mother Alive Sister 1 Alive Sister 2 Alive Sister 3 Alive Son 1 Alive Son 2 Alive Social History Tobacco Use Types Packs/Day Years Used Date Smoking Tobacco: Former Cigarettes Q uit: 07/25/2022 Tobacco Cessation:Counseling Given: Not Answered Alcohol Use Standard Drinks/Week Comments Yes 1 [...] Friends and Family Patient declined 04/25/2020 Attends Buddhism Services Patient declined 03/31 Active Member of [...] staff should administer the PHQ-9) 0 07/15/2023 [facility] - Occupational Stress Questionnaire Answer Date Recorded Feeling of Stress Very much 04/25/2020 Exercise Vital Sign Answer Date Recorde d Days of Exercise per Week 0 days 2020 Minutes of Exercise per Session 0 min [...] on file Legal Sex Female 8:56 PM INVENTORY ASSISTANT Gender Identity Female 02/18/2023 8:40 AM INVENTORY ASSISTANT Sexual Orientation Choose not to disclose 2022 8:40 AM INVENTORY ASSISTANT Obstetrics History Para Term AB IAB SAB Ectopic Multiple Livin g Live Births 3 3 3 3 Date Outcome GA Total Labor Labor/2nd/3rd Weight Sex Type Anes PTL Cassidy A1 A5 Name Clin Term Term Term Last Filed Vital Signs Vital Sign Reading Time Taken Comments Blood Pressure 108/62 07/25/2024 1:32 PM CDT Pulse 90 07/25/2024 1:32 PM CDT Temperature 36.8 C (98.2 F) 07/25/2024 1:32 PM CDT Respiratory Rate 16 07/25/2024 1:32 PM CDT Oxygen Saturation 99% 07/25/2024 1:32 PM CDT Inhaled Oxygen Concentration - - Weight 59 kg (130 lb) 11/29/2024 10:48 AM CDT Height 5.3 cm (2.09) 11/29/2024 10:48 AM CDT Body Mass Index 70285.63 11/29/2024 10:48 AM CDT Plan of Treatment Health Maintenance Due Date Last Done Comments Cervical Cancer Screening 1982 Hepatitis C Screening 1982 Hepatitis B Screening 2000 HPV Vaccines (1 - 3-dose SCDM series) 2009 Varicella Vaccines (1 of 2 - 13+ 2-dose series) 09/19/2015 Depression Screening 07/14/2024 07/15/2023, 08/12/2022, 08/12/2022, Additional history exists Covid-19 Vaccine (2 - 2024- season) 2024 11/17/2020 Influenza Vaccine (#1) 2024 02/16/2019 Regular Well Visit/Exam 18-64 07/25/2025 07/25/2024, 07/15/2023 Breast Cancer Screening-Mammogram 10/26/2025 10/26/2024, 04/10/2023 DTaP/Tdap/Td Vaccine (3 - Td or Tdap) 10/05/2032 10/05/2022, 06/07/2009 Pneumococcal vaccine <65 Aged Out No longer eligible based on patient's age to complete this topic Procedures Procedure Name Priority Date/Time Associated Diagnosis Comments SCREENING MAMMOGRAM BILATERAL W HOANG W IMPLANTS Schedule Routine, Read Routine (OP Routine) 10/26/2024 10:44 AM CDT Screening mammogram, encounter for H/O bilateral breast implants TSH Routine 08/31/2024 7:40 AM CDT Annual physical exam Hot flashes LIPID PANEL Routine 08/31/2024 7:40 AM CDT Annual physical exam COMPREHENSIVE METABOLIC PANEL Routine 08/31/2024 7:40 AM CDT Annual physical exam Hot flashes CBC WITH AUTO DIFFERENTIAL Routine 08/31/2024 7:40 AM CDT Annual physical exam from Last 3 Months Results * Screening Mammogram Bilateral W Hoang W Implants (10/26/2024 10:44 AM CDT) Anatomical Region Laterality Modality Breast Bilateral Mammography Impressions 10/26/2024 11:23 AM CDT Bilateral No evidence of malignancy in either breast. OVERALL BI-RADS FINAL ASSESSMENT: 1 - Negative RECOMMENDATION: Recommend bilateral annual screening mammography. Consider supplemental screening with breast MRI every 1-2 years given extremely dense breast tissue. If breast MRI cannot be performed, consider contrast-enhanced mammography as an alternative. Narrative 10/26/2024 11:23 AM CDT EXAMINATION: Screening Mammogram Bilateral W Hoang W Implants: 10/26/2024 COMPARISON: Relevant prior studies available at the time of interpretation were reviewed, including the most recent mammogram on: 04/10/2023. TECHNIQUE: Mammography was performed with 2D and digital breast tomosynthesis (DBT) images. CAD was utilized. BREAST PARENCHYMAL COMPOSITION: The breasts are extremely dense, which lowers the sensitivity of mammography. FINDINGS: Bilateral There is no suspicious mass, calcification, or architectural distortion in either breast.There are bilateral subpectoral silicone breast implants. The presence of implants limits the sensitivity of mammography. us Aldo NAVARRO IMTereso MAMMO PROCEDURES Final Resu lt * (ABNORMAL) CBC with auto differential (08/31/2024 7:40 AM CDT) [facility] WBC 4.2 3.4 - 10.8 x10E3/uL [facility] - 01 RBC 3.86 3.77 - 5.28 x10E6/uL [facility] - 01 Hgb 12.4 11.1 - 15.9 g/dL [facility] - 01 Hct 38.2 34.0 - 46.6 % [facility] - 01 MCV 99(H) 79 - 97 fL [facility] - 01 MCH 32.1 26.6 - 33.0 pg [facility] - 01 MCHC 32.5 31.5 - 35.7 g/dL [facility] - 01 Rdw 11.8 11.7 - 15.4 % [facility] - 01 Platelets 263 150 - 450 x10E3/uL [facility] - 01 Neutrophils pct 52 Not Estab. % [facility] - 01 Lymphs pct 33 Not Estab. % [facility] - 01 Monocytes pct 11 Not Estab. % [facility] - 01 Eosinophils pct 3 Not Estab. % [facility] - 01 Basophil pct 1 Not Estab. % [facility] - 01 Neutrophil abs 2.2 1.4 - 7.0 x10E3/uL [facility] - 01 Lymphs (Absolute) 1.4 0.7 - 3.1 x10E3/uL [facility] - 01 Monocyte abs 0.5 0.1 - 0.9 x10E3/uL [facility] - 01 Eosinophils, abs 0.1 0.0 - 0.4 x10E3/uL [facility] - 01 Basophils, abs 0.1 0.0 - 0.2 x10E3/uL [facility] - 01 Immature Granulocytes 0 Not Estab. % [facility] - 01 Immature Grans (Abs) 0.0 0.0 - 0.1 x10E3/uL [facility] - 01 Blood 08/31/2024 7:40 AM CDT 08/31/2024 Narrative [facility] - 09/01/2024 12:07 AM CDT Performed at: [address] [place] [id number] Mirror Painter: Jarrett Garcias PhD, Phone: [phone] us Aldo NAVARRO LAB BLOOD ORDERABLES Final Resu lt Performing Organization Address City/[facility]/ZIP Co de Phone Number [facility] - 01 * TSH (08/31/2024 7:40 AM CDT) TSH 2.060 0.450 - 4.500 uIU/mL [facility] - 01 Blood 08/31/2024 7:40 AM CDT 08/31/2024 Narrative [facility] - 09/01/2024 2:07 AM CDT Performed at: - [address] [id number] Mirror Painter: Jarrett Garcias PhD, Phone: [phone] us Aldo NAVARRO LAB BLOOD ORDERABLES Final Resu lt Performing Organization Address [facility] Co de Phone Number [facility] - 01 * Lipid panel (08/31/2024 7:40 AM CDT) Cholesterol 197 100 - 199 mg/dL [facility] - 01 Triglycerides 45 0 - 149 mg/dL [facility] - 01 HDL Cholesterol 89 >39 mg/dL [facility] - 01 VLDL 9 5 - 40 mg/dL [facility] - 01 LDL, calculated 99 0 - 99 mg/dL [facility] - 01 Blood 08/31/2024 7:40 AM CDT 08/31/2024 Narrative [facility] - 09/01/2024 2:07 AM CDT Performed at: [address] [id number] Mirror Painter: Jarrett Garcias PhD, Phone: [phone] us Aldo NAVARRO LAB BLOOD ORDERABLES Final Resu lt Performing Organization Address City/[facility]/ZIP Co de Phone Number [facility] - 01 * (ABNORMAL) Comprehensive metabolic panel (08/31/2024 7:40 AM CDT) Pathologist [facility] Glucose 88 70 - 99 mg/dL [facility] - 01 BUN 10 6 - 24 mg/dL [facility] - 01 Creatinine, Serum 0.80 0.57 - 1.00 mg/dL [facility] - 01 eGFR 95 >59 mL/min/1.7 3 [facility] - 01 BUN/creat ratio 13 9 - 23 [facility] - 01 Sodium 137 134 - 144 mmol/L [facility] - 01 Potassium, sr 4.4 3.5 - 5.2 mmol/L [facility] - 01 Chloride 102 96 - 106 mmol/L [facility] - 01 CO2 22 20 - 29 mmol/L [facility] - 01 Calcium 9.4 8.7 - 10.2 mg/dL [facility] - 01 Protein, sr 6.7 6.0 - 8.5 g/dL [facility] - 01 Albumin 4.5 3.9 - 4.9 g/dL [facility] - 01 Globulin, Total 2.2 1.5 - 4.5 g/dL [facility] - 01 Bilirubin, Total 1.4(H) 0.0 - 1.2 mg/dL [facility] - 01 Alk phos 35(L) 44 - 121 IU/L [facility] - 01 AST 27 0 - 40 IU/L [facility] - 01 ALT 14 0 - 32 IU/L [facility] - 01 Blood 08/31/2024 7:40 AM CDT 08/31/2024 Narrative [facility] - 09/01/2024 2:07 AM CDT Performed at: 01 - [facility] [address] [id number] Mirror Painter: Jarrett Garcias PhD, Phone: [phone] us Aldo NAVARRO LAB BLOOD ORDERABLES Final Resu lt [facility] - 01 from Last 3 Months Insurance [place] Care Teams Child Care Specialist Relationship Specialty Start Date End Date Aldo Flowers PA PCP - General Family Medicine 09/16/22
--- OUTSIDE RECORDS SUMMARY | 2024-12-01 00:44 | XMS_ITS | Encounter Summary ---
Author Organization [facility] Address [address] [place] [address] Care Team Providers Care Interior Designer Name Role Phone Lavinia Tran MD Primary Care Provider Unava ilable Encounter Details Date Type Department Care Team (Late st Contact Info) Description 04/02/2005 Outpatient Historical [facility] [address] [place] [phone] Lavinia Tran [address] [place] [address] Social History Tobacco Use Types Packs/Day Years Used Date Smoking Tobacco: Never Assessed Comments Unknown Sex and Gender Information Value Date Recorded Sex Assigned at Not on file Legal Sex Female 5:00 AM APPRENTICE PAINTER HAND Gender Identity Not on file Sexual Orientation Not on file documented as of this encounter Plan of Treatment Not on file documented as of this encounter Visit Diagnoses Not on filedocumented in this encounter Care Teams Interior Designer Relationship Specialty Start Date End Date Lavinia Tran MD PCP - General 11/14/04 documented as of this encounter
--- OUTSIDE RECORDS SUMMARY | 2024-12-01 00:44 | XMS_ITS | Encounter Summary ---
Author Organization [facility] Address [address] [place] [address] Care Team Providers Care Surgical Scrub Technician Name Role Phone Lavinia Tran MD Primary Care Provider Unava ilable Encounter Details Date Type Department Care Team (Late st Contact Info) Description 04/15/2005 Outpatient Historical [facility] [address] [place] [address] Dick Ortega MD NO ADDRESS ON FILE Social History Tobacco Use Types Packs/Day Years Used Date Smoking Tobacco: Never Assessed Comments Unknown Sex and Gender Information Value Date Recorded Sex Assigned at Not on file Legal Sex Female 5:00 AM SHANK PIECE TACKER Gender Identity Not on file Sexual Orientation Not on file documented as of this encounter Plan of Treatment Not on file documented as of this encounter Visit Diagnoses Not on filedocumented in this encounter Care Teams Surgical Scrub Technician Relationship Specialty Start Date End Date Lavinia Tran MD PCP - General 11/14/04 documented as of this encounter
--- OUTSIDE RECORDS SUMMARY | 2024-12-01 00:44 | XMS_ITS | Encounter Summary ---
Author Organization [facility] Address [address] [place] [address] Care Team Providers Care Secondary School Special Ed Teacher Name Role Phone Lavinia Tran MD Primary Care Provider Unava ilable Encounter Details Date Type Department Care Team (Late st Contact Info) Description 10/02/2004 Outpatient Historical [facility] [address] Lavinia Tran [address] [place] [address] SUPERVIS OTHER NORMAL PREG (Primary Dx) Social History Tobacco Use Types Packs/Day Years Used Date Smoking Tobacco: Never Assessed Comments Unknown Sex and Gender Information Value Date Recorded Sex Assigned at Not on file Legal Sex Female 5:00 AM SUPERVISOR MOLDING Gender Identity Not on file Sexual Orientation Not on file documented as of this encounter Plan of Treatment Not on file documented as of this encounter Visit Diagnoses Diagnosis Supervision of other normal - Primary documented in this encounter Care Teams [employer] Special Ed Teacher Relationship Specialty Start Date End Date Lavinia Tran MD PCP - General 11/14/04 documented as of this encounter
--- OUTSIDE RECORDS SUMMARY | 2024-12-01 00:44 | XMS_ITS | Encounter Summary ---
Author Organization [facility] Address [address] [place] [address] Care Team Providers Care Lottery Office Manager Name Role Phone Lavinia Tran MD Primary Care Provider Unava ilable Encounter Details Date Type Department Care Team (Late st Contact Info) Description 10/30/2004 Outpatient Historical [facility] Lavinia Tran [address] [place] [address] SUPERVIS OTHER NORMAL PREG (Primary Dx) Social History Tobacco Use Types Packs/Day Years Used Date Smoking Tobacco: Never Assessed Comments Unknown Sex and Gender Information Value Date Recorded Sex Assigned at Not on file Legal Sex Female 5:00 AM SHIP RIGGER APPRENTICE Gender Identity Not on file Sexual Orientation Not on file documented as of this encounter Plan of Treatment Not on file documented as of this encounter Visit Diagnoses Diagnosis Supervision of other normal - Primary documented in this encounter Care Teams Lottery Office Manager Relationship Specialty Start Date End Date Lavinia Tran MD PCP - General 11/14/04 documented as of this encounter
--- OUTSIDE RECORDS SUMMARY | 2024-12-01 00:44 | XMS_ITS | Clinical Summary ---
Author Organization [facility] Address [address] [place] [address] Phone Care Team Providers Care Truck Headlight Assembler Name Role Phone Lavinia Tran MD Primary Care Provider Unava ilable Allergies Active Allergy Reactions Criticality Noted Date Comments Amoxicillin-Pot Clavulanate Rash Low 08/16/19 16 Medications vit-iron fumarate-fa () 28-0.8 mg Oral Tab Take 1 Tab by mouth daily. Active ferrous sulfate (IRON, FERROUS SULFATE,) 325 mg (65 mg Iron) Oral tablet Take 325 mg by mouth daily. Active HYDROcodone-rodri taminophen (NORCO) 5-325 mg tablet Take 1 Tablet by mouth every 4 hours as needed for Pain, Moderate (For Pain Scale 4-6). Max Daily Amount: 6 Tablet 30 Tablet 0 08/22/2015 Active Active Problems Problem Noted Date Diagnosed Date 08/21/15 08/16/2015 Labor; GBS neg, O+, Hx cocaine use, SROM 04:30 0 06/06/2009 Immunizations Immunization Administration Dates Next Due (M-M-R II/PRIORIX)(12 MO UP) MEASLES, MUMPS AND RUBELLA VIRUS VACCINE, 0.5 ML IM/SUBCUT 08/22/2015 Influenza A (H1N1) Vaccine IM 12/28/2008 Tdap Vaccine > 7 Yo IM VFC 06/07/2009 Family History Medical History Relation Name Comments Healthy Brother 1 Healthy Brother 2 Healthy Brother 3 Hypertension Father Hypertension Mother Healthy Sister 1 Healthy Sister 2 Healthy Sister 3 Healthy Son Relation Name Status Comments Brother 1 Alive Brother 2 Alive Brother 3 Alive Father Alive Mother Alive Sister 1 Alive Sister 2 Alive Sister 3 Alive Son Alive Social History Tobacco Use Types Packs/Day Years Used Date Smoking Tobacco: Former Cigarettes Q uit: 11/14/2014 Smokeless Tobacco: Never Alcohol Use Standard Drinks/Week Comments No 0 (1 standard drink = 0.6 oz pur e alcohol) Comments No Sex and Gender Information Value Date Recorded Sex Assigned at Not on file Legal Sex Female 5:00 AM TRANSMISSION INSPECTOR Gender Identity Not on file Sexual Orientation Not on file Last Filed Vital Signs Vital Sign Reading Time Taken Comments Blood Pressure 126/79 08/23/2015 7:44 AM CDT Pulse 65 08/23/2015 7:44 AM CDT Temperature 36.5 C (97.7 F) 08/23/2015 7:44 AM CDT Respiratory Rate 18 08/23/2015 7:44 AM CDT Oxygen Saturation 100% 08/21/2015 3:48 PM CDT Inhaled Oxygen Concentration - - Weight 76.2 kg (168 lb) 08/21/2015 2:35 AM CDT Height 162.6 cm (5' 4) 08/21/2015 2:35 AM CDT Body Mass Index 28.84 08/21/2015 2:35 AM CDT Plan of Treatment Health Maintenance Due Date Last Done Comments HEPATITIS B VACCINES (1 of 3 - 19+ 3-dose series) 04/2001 HPV/Cotest (21-29) 12/30/2003 HPV VACCINES (1 - 3-dose SCDM series) 2009 CERVICAL CANCER SCREENING 2012 HPV/Cotest (30-65) 2012 PAP SMEAR 2012 DTAP/TDAP/TD VACCINES (2 - Td or Tdap) 06/08/2019 BREAST CANCER SCREENING 2022 INFLUENZA VACCINE (#1) 2024 Insurance [employer] BLUE ACCESS/TRUE BLUE PPO Advance Directives For more information, please contact: [phone] * Full Code (Latest Code Status on File) Date Activated Date Inactivated Comments 08/21/2015 11:37 PM 08/24/2015 4:30 AM * Full Code Date Activated Date Inactivated Comments 08/21/2015 3:02 AM 08/21/2015 11:37 PM * Full Code Date Activated Date Inactivated Comments 08/16/2015 10:41 AM 08/16/2015 4:33 PM * Full Code Date Activated Date Inactivated Comments 06/06/2009 2:57 PM 06/08/2009 1:42 PM * Full Code Date Activated Date Inactivated Comments 06/06/2009 5:18 AM 06/06/2009 2:57 PM Care Teams Truck Headlight Assembler Relationship Specialty Start Date End Date Lavinia Tran MD PCP - General 11/14/04
--- OUTSIDE RECORDS SUMMARY | 2024-12-01 00:44 | XMS_ITS | Encounter Summary ---
Author Organization [facility] Address [address] [place] [address] Care Team Providers Care Computer Education Teacher Name Role Phone Lavinia Tran MD Primary Care Provider Unava ilable Encounter Details Date Type Department Care Team (Late st Contact Info) Description 10/30/2004 Outpatient Historical [facility] [address] [place] [phone] Lavinia Tran [address] [place] [address] Social History Tobacco Use Types Packs/Day Years Used Date Smoking Tobacco: Never Assessed Comments Unknown Sex and Gender Information Value Date Recorded Sex Assigned at Not on file Legal Sex Female 5:00 AM DIRECTOR INFORMATION SECURITY Gender Identity Not on file Sexual Orientation Not on file documented as of this encounter Plan of Treatment Not on file documented as of this encounter Visit Diagnoses Not on filedocumented in this encounter Care Teams Computer Education Teacher Relationship Specialty Start Date End Date Lavinia Tran MD PCP - General 11/14/04 documented as of this encounter
--- OUTSIDE RECORDS SUMMARY | 2024-12-01 00:44 | XMS_ITS | Encounter Summary ---
Author Organization [facility] Address [address] [place] [address] Care Team Providers Care Pick Out Hand Name Role Phone Lavinia Tran MD Primary Care Provider Unava ilable Encounter Details Date Type Department Care Team (Late st Contact Info) Description 04/09/2005 Outpatient Historical [facility] [address] [place] [phone] Lavinia Tran [address] [place] [address] Social History Tobacco Use Types Packs/Day Years Used Date Smoking Tobacco: Never Assessed Comments Unknown Sex and Gender Information Value Date Recorded Sex Assigned at Not on file Legal Sex Female 5:00 AM LOOM STOP CHECKER Gender Identity Not on file Sexual Orientation Not on file documented as of this encounter Plan of Treatment Not on file documented as of this encounter Visit Diagnoses Not on filedocumented in this encounter Care Teams Pick Out Hand Relationship Specialty Start Date End Date Lavinia Tran MD PCP - General 11/14/04 documented as of this encounter
--- OUTSIDE RECORDS SUMMARY | 2024-12-01 00:44 | XMS_ITS | Clinical Summary ---
Author Organization [facility] Address [facility] [place] [address] Care Team Providers Care Technician Test Systems Name Role Phone Unavailable Primary Care Provider Unavailabl e Social History Tobacco Use Types Packs/Day Years Used Date Smoking Tobacco: Never Assessed Comments Unknown Sex and Gender Information Value Date Recorded Sex Assigned at Not on file Legal Sex Female 5:24 PM CDT Gender Identity Not on file Sexual Orientation Not on file Plan of Treatment Health Maintenance Due Date Last Done Comments Cervical Cancer Screening Pa p Smear (Age 30 to 64) Every 3 Years 1982 Annual Physical 1985 Hepatitis C 2000 DTaP, Tdap and Td Vaccines ( 1 - Tdap) 2001 Hepatitis B Vaccines (1 of 3 - 19+ 3-dose series) 2001 HPV Vaccines (1 - 3-dose SCD M series) 2009 Cervical Cancer Screening Pa p with HPV Testing (Age 30 to 64) Every 5 Years 2012 Cervical Cancer Screening with HPV 2012 Mammogram Screening 2022 COVID-19 Vaccine ( - 2023-2 5 season) 2024 Meningococcal B Vaccine Aged Out No l onger eligible based on patient's age to complete this topic Meningococcal Vaccine Aged Out No whitney luis eligible based on patient's age to complete this topic Pneumococcal Vaccine: Pediat rics (0 to 5 Years) and At-Risk Patients (6 to 49 Years) Aged Out No longer eligible b ased on patient's age to complete this topic RSV Immunizations Under 20 Months Aged Out No longer eligible based on patient's age to complete this topic
--- OUTSIDE RECORDS SUMMARY | 2024-12-01 00:44 | XMS_ITS | Encounter Summary ---
Author Organization [facility] Address [address] [place] [address] Care Team Providers Care Rotor Assembler Name Role Phone Lavinia Tran MD Primary Care Provider Unava ilable Encounter Details Date Type Department Care Team (Late st Contact Info) Description 05/28/2005 Outpatient Historical [facility], [address] Lavinia Tran [address] [place] [address] SCREENING MAL NEOP-CERVIX (Primary Dx) Social History Tobacco Use Types Packs/Day Years Used Date Smoking Tobacco: Never Assessed Comments Unknown Sex and Gender Information Value Date Recorded Sex Assigned at Not on file Legal Sex Female 5:00 AM WEATHERIZATION AND HOUSING INSPECTOR Gender Identity Not on file Sexual Orientation Not on file documented as of this encounter Plan of Treatment Not on file documented as of this encounter Visit Diagnoses Diagnosis Screening for malignant neoplasm of the cervix- Primary documented in this encounter Care Teams Rotor Assembler Relationship Specialty Start Date End Date Lavinia Tran MD PCP - General 11/14/04 documented as of this encounter
--- OUTSIDE RECORDS SUMMARY | 2024-12-01 00:44 | XMS_ITS | Encounter Summary ---
Author Organization [facility] Address [address] [place] [address] Care Team Providers Care Mask Designer Name Role Phone Lavinia Tran MD Primary Care Provider Unava ilable Encounter Details Date Type Department Care Team (Late st Contact Info) Description 05/28/2005 Outpatient Historical [facility] [address] [place] [phone] Lavinia Tran [address] [place] [address] Social History Tobacco Use Types Packs/Day Years Used Date Smoking Tobacco: Never Assessed Comments Unknown Sex and Gender Information Value Date Recorded Sex Assigned at Not on file Legal Sex Female 5:00 AM CHAPLAINCY Gender Identity Not on file Sexual Orientation Not on file documented as of this encounter Plan of Treatment Not on file documented as of this encounter Visit Diagnoses Not on filedocumented in this encounter Care Teams Mask Designer Relationship Specialty Start Date End Date Lavinia Tran MD PCP - General 11/14/04 documented as of this encounter
--- OUTSIDE RECORDS SUMMARY | 2024-12-01 00:44 | XMS_ITS | Encounter Summary ---
Author Organization [facility] Address 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
--- OUTSIDE RECORDS SUMMARY | 2024-12-01 00:44 | XMS_ITS | Encounter Summary ---
Author Organization [facility] Address 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
--- OUTSIDE RECORDS SUMMARY | 2024-12-01 00:44 | XMS_ITS | Encounter Summary ---
Author Organization [facility] Address 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
--- OUTSIDE RECORDS SUMMARY | 2024-12-01 00:44 | XMS_ITS | Encounter Summary ---
Author Organization [facility] Address [address] [place] [address] Care Team Providers Care Staff Physical Therapist Name Role Phone Lavinia Tran MD Primary Care Provider Unava ilable Encounter Details Date Type Department Care Team (Late st Contact Info) Description 11/27/2004 Outpatient Historical [facility], [address] Lavinia Tran [address] [place] [address] PREG STATE, INCIDENTAL (Primary Dx) Social History Tobacco Use Types Packs/Day Years Used Date Smoking Tobacco: Never Assessed Comments Unknown Sex and Gender Information Value Date Recorded Sex Assigned at Not on file Legal Sex Female 5:00 AM EMT INTERMEDIATE Gender Identity Not on file Sexual Orientation Not on file documented as of this encounter Plan of Treatment Not on file documented as of this encounter Procedures Procedure Name Priority Date/Time Associated Diagnosis Comments DRUG SCREEN, URINE Routine 11/27/2004 12 :05 PM CDT documented in this encounter Results * DRUG SCREEN, URINE (11/27/2004 12:05 PM CDT) COMMENT, TOXICOLOGY See Separate Comment INTERFACE [...] drugs of abuse are available on the [facility] [employer] at: [email or web address] [email or web address]/Mashups/sjmmclab.nsf Select: Drugs of Abuse ? [facility] To inquire about any potential cross-reactivity of a specific drug not listed at this site, please contact the Chemistry Lab at . AMPHETAMINE QUAL, URINE Negative INTERFACE SYSTEM BARBITURATE QUAL, URINE Negative INTERFACE SYSTEM BENZODIAZEPINE QUAL, URINE Negative INTERFACE SYSTEM CANNABINOIDS QUAL, URINE Negative INTERFACE SYSTEM COCAINE QUAL URINE Negative I NTERFACE SYSTEM OPIATE QUAL, URINE Negative I NTERFACE SYSTEM PCP QUAL, URINE Negative INTE RFACE SYSTEM 11/27/2004 12:0 5 PM CDT us Lavinia Tran URINE ORDERABLES Final Result INTERFACE SYSTEM Refer to clinic/hospital department documented in this encounter Visit Diagnoses Diagnosis state, incidental- Primary documented in this encounter Care Teams Staff Physical Therapist Relationship Specialty Start Date End Date Lavinia Tran MD PCP - General 11/14/04 documented as of this encounter
--- OUTSIDE RECORDS SUMMARY | 2024-12-01 00:44 | XMS_ITS | Encounter Summary ---
Author Organization [facility] Address [address] [place] [address] Care Team Providers Care Mattress Maker Name Role Phone Lavinia Tran MD Primary Care Provider Unava ilable Encounter Details Date Type Department Care Team (Late st Contact Info) Description 04/14/2005 Inpatient Historical [facility] PATIENT IN A BED Dick Ortega MD NO ADDRESS ON FILE Carmen Melendez MENTAL DISORDER-DELIVER (Primary Dx) Social History Tobacco Use Types Packs/Day Years Used Date Smoking Tobacco: Never Assessed Comments Unknown Sex and Gender Information Value Date Recorded Sex Assigned at Not on file Legal Sex Female 5:00 AM RENTAL MANAGEMENT TRAINEE Gender Identity Not on file Sexual Orientation Not on file documented as of this encounter Plan of Treatment Not on file documented as of this encounter Procedures Procedure Name Priority Date/Time Associated Diagnosis Comments HEMOGLOBIN AND HEMATOCRIT Routine 04/16/2005 10:07 AM RENTAL MANAGEMENT TRAINEE DRUG CONFIRMATION Routine 04/15/2005 6:2 1 AM RENTAL MANAGEMENT TRAINEE DRUG SCREEN, URINE Routine 04/15/2005 5: 04 AM RENTAL MANAGEMENT TRAINEE documented in this encounter Results * (ABNORMAL) HEMOGLOBIN AND HEMATOCRIT (04/16/2005 10:07 AM RENTAL MANAGEMENT TRAINEE) HEMOGLOBIN 10.2(L) 11.8 - 14.8 g/dL INTERFACE SYSTEM HEMATOCRIT 29.7(L) 35.5 - 44.0 % INTERFACE SYSTEM 04/16/2005 10:0 7 AM RENTAL MANAGEMENT TRAINEE [facility] HEMATOLOGY ORDERABLES Final R esult Performing Organization Address [facility] de Phone Number INTERFACE SYSTEM Refer to clinic/hospital department * DRUG CONFIRMATION (04/15/2005 6:21 AM RENTAL MANAGEMENT TRAINEE) COCAINE METAB QUANT, URINE 62838 ng/mL INTERFACE SYSTEM Comment: Cocaine Confirmation Cutoff: 150 ng/mL CHAIN OF CUSTODY INT ERFACE SYSTEM Comment: Specimen analysis was performed without chain of custody handling. These results should be used for medical purposes only and not for any legal or employment evaluative purposes. This test was performed by GC/MS only at the request of the client. The urine was not screened by immunoassay by [employer]. Performed by [employer], [place], [place]. 04/15/2005 6:21 AM RENTAL MANAGEMENT TRAINEE [facility] URINE ORDERABLES Final Result Performing Organization Address [facility] Phone Number INTERFACE SYSTEM Refer to clinic/hospital department * DRUG SCREEN, URINE (04/15/2005 5:04 AM RENTAL MANAGEMENT TRAINEE) COMMENT, TOXICOLOGY See Separate Comment INTERFACE SYSTEM [...] drugs of abuse are available on the [facility] [employer] at: [email or web address]/sjmmclab.nsf Select: Drugs of Abuse ? [facility] To inquire about any potential cross-reactivity of a specific drug not listed at this site, please contact the Chemistry Lab at . AMPHETAMINE QUAL, URINE Negative INTERFACE SYSTEM BARBITURATE QUAL, URINE Negative INTERFACE SYSTEM BENZODIAZEPINE QUAL, URINE Negative INTERFACE SYSTEM CANNABINOIDS QUAL, URINE Negative INTERFACE SYSTEM COCAINE QUAL URINE Presumptive Positive INTERFACE SYSTEM OPIATE QUAL, URINE Negative INTERFACE SYSTEM PCP QUAL, URINE Negative INTE RFACE SYSTEM 04/15/2005 5:04 AM RENTAL MANAGEMENT TRAINEE Carmen Melendez URINE ORDERABLES Final Result INTERFACE SYSTEM Refer to clinic/hospital department documented in this encounter Visit Diagnoses Diagnosis Mental disorders of mother, with delivery- Primary documented in this encounter Care Teams Mattress Maker Relationship Specialty Start Date End Date Lavinia Tran MD PCP - General 11/14/04 documented as of this encounter
--- OUTSIDE RECORDS SUMMARY | 2024-12-01 00:44 | XMS_ITS | Encounter Summary ---
Author Organization [facility] Address [address] [place] [address] Care Team Providers Care Clinic Licensed Practical Nurse Name Role Phone Lavinia Tran MD Primary Care Provider Unava ilable Encounter Details Date Type Department Care Team (Late st Contact Info) Description 10/02/2004 Outpatient Historical [facility] [address] [place] [phone] Lavinia Tran [address] [place] [address] Social History Tobacco Use Types Packs/Day Years Used Date Smoking Tobacco: Never Assessed Comments Unknown Sex and Gender Information Value Date Recorded Sex Assigned at Not on file Legal Sex Female 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
--- OUTSIDE RECORDS SUMMARY | 2024-12-01 00:44 | XMS_ITS | Encounter Summary ---
Author Organization [facility] Address 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 Gender Identity Not on file Sexual Orientation Not on file documented as of this encounter Plan of Treatment Not on file documented as of this encounter Procedures Procedure Name Priority Date/Time Associated Diagnosis Comments MATERNAL SERUM TRIPLE SCREEN Routine 11/14/2004 3:41 PM CDT URINALYSIS W/REFLEX MICROSCOPIC Routine 11/14/2004 3:31 PM CDT documented in this encounter Results * MATERNAL SERUM TRIPLE SCREEN (11/14/2004 3:41 PM CDT) FAMILY HISTORY ng INTER FACE SYSTEM LAST MENSTRUAL PERIOD 07/09/2004 INTERFACE SYSTEM MULTI GESTATION PREG no INTERFACE SYSTEM OTHER RACE INFO ng INTE RFACE SYSTEM RISK INTERP INTERFAC E SYSTEM Comment: SCREEN NEGATIVE FOR OPEN NTD, DOWN SYNDROME AND TRISOMY 18. See Result Comment AFP RISK OF OPEN NTD <1 IN 5000 INTERFACE SYSTEM AGE RISK DOWN SYNDROME 1 IN 1144 INTERFACE SYSTEM RISK FOR DOWN'S <1 IN 5000 INT ERFACE SYSTEM TRISOMY 18 RISK <1 IN 5000 INT ERFACE SYSTEM ALPHA FETOPROTEIN MATERNAL 41.8 ng/mL INTERFACE SYSTEM ADJ MULTIPL MED AFP 0.81 INTERFACE SYSTEM ESTRIOL UNCONJUGATED 3.53 ng/mL INTERFACE SYSTEM ADJ MULT MED ESTRIOL 0.75 INTERFACE SYSTEM HCG, INTACT 11.10 IU/mL INTERFAC E SYSTEM ADJ MULTIPLE MED HCG 0.51 INTERFACE SYSTEM TRIPLE TEST COMMENTS INTERFACE SYSTEM Comment: THIS PATIENT'S LAKE (ESTIMATED DATE OF DELIVERY) WAS USED TO CALCULATE THE GESTATIONAL AGE. PERFORMANCE OF MATERNAL SERUM AFP, HCG, AND ESTRIOL PROVIDES A USEFUL SCREENING TEST FOR DETECTION OF OPEN NEURAL TUBE DEFECTS AND SOME CHROMOSOMAL ABNORMALITIES. IT SHOULD BE NOTED THAT NORMAL RESULTS CAN NEVER GUARANTEE THE OF A NORMAL BABY AND THAT 2 TO 3 PERCENT OF [place] HAVE SOME TYPE OF PHYSICAL OR MENTAL DEFECT, MANY OF WHICH ARE UNDETECTABLE THROUGH ANY KNOWN DIAGNOSTIC TECHNIQUE. See Result Comment TRIPLE TEST INTERP I NTERFACE SYSTEM Comment: THIS IS A SCREENING TEST, NOT A DIAGNOSTIC TEST. NO REAGENT SYSTEM ESTABLISHING THE RISK OF CHROMOSOME ABNORMALITIES DURING HAS BEEN APPROVED BY THE FDA. THIS RISK ASSESSMENT REPORT IS BASED IN PART ON DEMOGRAPHIC DATA PROVIDED BY THE ORDERING PHYSICIAN. PLEASE NOTIFY THE LABORATORY PROMPTLY IF ANY DATA ARE INCORRECT. FOR ASSISTANCE WITH RECALCULATIONS, PLEASE CALL YOUR LOCAL [facility]. FOR ASSISTANCE WITH INTERPRETATION OF THESE RESULTS, PLEASE CONTACT YOUR LOCAL [facility] GENETIC COUNSELOR OR CALL [phone]. INTERPRETIVE CUT-OFFS SCREEN POSITIVE FOR OPEN NTD: > OR = 2.50 ADJUSTED MOM > OR = 1.90 ADJUSTED MOM FOR INSULIN-DEPENDENT DIABETICS > OR = 4.00 ADJUSTED MOM FOR TWINS > OR = 4.50 ADJUSTED MOM FOR TRIPLETS SCREEN POSITIVE FOR DOWN SYNDROME:MSS3 DOWN SYNDROME RISK THAT EQUALS OR EXCEEDS 1 IN 270 SCREEN POSITIVE FOR TRISOMY 18:MSS3 TRISOMY 18 RISK THAT EQUALS OR EXCEEDS 1 IN 100 See Result Comment GESTATIONAL AGE 18.3 Weeks INTE RFACE SYSTEM PATIENT'S EST DELIVERY DATE 04/15/2005 INTERFACE SYSTEM GESTATION CALC METHOD LMP INTERFACE SYSTEM PATIENT'S WEIGHT 118 Lb INT ERFACE SYSTEM RACE INTERFACE SYSTEM INSULIN DEPEND DIABETIC NO INTERFACE SYSTEM REPEAT SPECIMEN? NO INT ERFACE SYSTEM NUMBER OF FETUS 1 INTE RFACE SYSTEM HISTORY OF NTD NO INTER FACE SYSTEM Comment: Lab test performed by: [facility] [id number] [place] [address] SANDIP NORWOOD MD 11/14/2004 3:41 PM CDT Lavinia Tran CHEMISTRY ORDERABLES Final Resu lt Performing Organization Address [facility] Co de Phone Number INTERFACE SYSTEM Refer to clinic/hospital department * (ABNORMAL) URINALYSIS (11/14/2004 3:31 PM CDT) COLOR UA Yellow INTERFACE SYSTEM CLARITY UA Slt. Cloudy(A) Clear INTERFACE SYSTEM SPECIFIC GRAVITY UA 1.005 1.001 - 1.035 INTERFACE SYSTEM PH UA 7.5 5.0 - 8.0 INTERFACE SYSTEM LEUKOCYTE ESTERASE UA Trace(A) Negative INTERFACE SYSTEM NITRITE UA Negative Negative [...] Negative Negative INTERFA CE SYSTEM BLOOD UA Negative Negative INTERFACE SYSTEM EPITHELIAL CELLS, URINE 2-5 /HPF INTERFACE SYSTEM AMORPHOUS CRYSTAL Rare /HPF INTERFACE SYSTEM 11/14/2004 3:31 PM CDT Maria Fernanda [place] URINE ORDERABLES Final Result Performing Organization Address [facility] Co de Phone Number INTERFACE SYSTEM Refer to clinic/hospital department documented in this encounter Visit Diagnoses Diagnosis state, incidental- Primary documented in this encounter Care Teams Inbound Sales Manager Relationship Specialty Start Date End Date Lavinia Tran MD PCP - General 11/14/04 documented as of this encounter
--- OUTSIDE RECORDS SUMMARY | 2024-12-01 00:44 | XMS_ITS | Encounter Summary ---
Author Organization [facility] Address [address] [place] [address] Care Team Providers Care Mechanical Striper Name Role Phone Lavinia Tran MD Primary Care Provider Unava ilable Encounter Details Date Type Department Care Team (Late st Contact Info) Description 11/14/2004 Outpatient Historical [facility] Maternal and Ground Floor [address] [place] [address] Li Carreno MD [address] [place] [address] Social History Tobacco Use Types Packs/Day Years Used Date Smoking Tobacco: Never Assessed Comments Unknown Sex and Gender Information Value Date Recorded Sex Assigned at Not on file 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
--- OUTSIDE RECORDS SUMMARY | 2024-12-01 00:44 | XMS_ITS | Encounter Summary ---
Author Organization [facility] Address [address] [place] [address] Care Team Providers Care Grants Director Name Role Phone Lavinia Tran MD Primary Care Provider Unava ilable Encounter Details Date Type Department Care Team (Late st Contact Info) Description 11/27/2004 Outpatient Historical [facility] Bart De La Fuente MD NO ADDRESS ON FILE SUPERVIS OTHER NORMAL PREG (Primary Dx) Social History Tobacco Use Types Packs/Day Years Used Date Smoking Tobacco: Never Assessed Comments Unknown Sex and Gender Information Value Date Recorded Sex Assigned at Not on file Legal Sex Female 5:00 AM MANAGER EQUITY Gender Identity Not on file Sexual Orientation Not on file documented as of this encounter Plan of Treatment Not on file documented as of this encounter Visit Diagnoses Diagnosis Supervision of other normal - Primary documented in this encounter Care Teams Grants Director Relationship Specialty Start Date End Date Lavinia Tran MD PCP - General 11/14/04 documented as of this encounter
--- OUTSIDE RECORDS SUMMARY | 2024-12-01 00:44 | XMS_ITS | Encounter Summary ---
Author Organization [facility] Address [address] [place] [address] Care Team Providers Care Sales Manager Prearranged Funerals Name Role Phone Lavinia Tran MD Primary Care Provider Unava ilable Encounter Details Date Type Department Care Team (Late st Contact Info) Description 04/09/2005 Outpatient Historical [facility] Lavinia Tran [address] [place] [address] SUPERVIS OTHER NORMAL PREG (Primary Dx) Social History Tobacco Use Types Packs/Day Years Used Date Smoking Tobacco: Never Assessed Comments Unknown Sex and Gender Information Value Date Recorded Sex Assigned at Not on file Legal Sex Female 5:00 AM HOSTEL MANAGER Gender Identity Not on file Sexual Orientation Not on file documented as of this encounter Plan of Treatment Not on file documented as of this encounter Visit Diagnoses Diagnosis Supervision of other normal - Primary documented in this encounter Care Teams Sales Manager Prearranged Funerals Relationship Specialty Start Date End Date Lavinia Tran MD PCP - General 11/14/04 documented as of this encounter
--- NOTE | 2024-12-01 08:43 | ECG_ITS ---
Test Date: 2024-12-01 10:27:07 Measurements Intervals [place] Rate: 67 P: 14 ND: 150 QRS: 40 QRSD: 94 T: 52 QT: 391 QTc: 413 Interpretive Statements SINUS RHYTHM RSR' IN V1 OR V2, PROBABLY NORMAL VARIANT No previous ECG available for comparison Electronically Signed On 12-01-2024 11:41:06 CDT by Jaden Spears M.D.
[2024-12-01] MEDS: TRANEXAMIC ACID 1,000MG/ISO100 1,000 MG/100 ML BAG 200 MG IVPB (10:45)
--- NOTE | 2024-12-01 11:24 | WPDHPUPDATE1 ---
History and Physical Update Update Date/Time: 12/01/24 11:24 History and Physical has been reviewed, including an updated exam of the patient. There are NO changes in the patient's condition. Risks, benefits, and alternatives have been discussed and questions answered. Patient agrees to proceed with procedure.
--- NOTE | 2024-12-01 11:30 | W.PM.PROC2 ---
Procedure Note - Detailed Date of Procedure 12/01/24 Pre-op Diagnosis Hx of Breast Aug Post-op Diagnosis Same Procedure Performed Bilateral breast implant exchange Surgeon Garry Lara MD Anesthesia General Findings Previous implants: [place] [id number] 400cc Right intact Left ruptured (intracapsular) New implants: Bilateral Dwight Menjivarira SoftTouch 560cc Right: REF# [id number] SN: [id number] Left: REF# [id number] SN: [id number] Description of Procedure Preoperatively the risks, benefits, alternatives were discussed in extensive detail. I wanted to be very realistic about the risks involved as well as expectations. I was clear about how we could actually make her worse. Answered all questions to satisfaction. Voiced a clear understanding. Consent obtained. She was taken the operating room placed supine on the operating room table. Anesthesia provided by anesthesiology and prepped and draped in a standard sterile fashion. Surgical time-out was taken. 1% lidocaine and 0.25% Marcaine with epinephrine was used to provide a field block. Tegaderm nipple luna were placed. Fifteen blade used to excise the previous IMF scars. Dissection was continued down until the capsules were identified and entered. Implants removed. I then copiously irrigated with 3 L of saline solution on TUR tubing. Bilateral medial / superior capsulotomy completed. Verified strict hemostasis. I then irrigated with Betadine containing solution. Using a no-touch technique and a Jung funnel the implant was introduced into the pocket. This was closed with 2-0 PDS followed by 3-0 Monocryl and a running subcuticular 4-0 Monocryl followed by tissue glue. Dressings were placed. She was woken taken to the PACU without difficulty. All instrument sponge counts were correct at the end of the case. Estimated Blood Loss 20 Drains No Packing No Pathology None sent Complications No immediate complications Condition Stable Disposition PACU
--- NOTE | 2024-12-01 11:39 | P.PNAN_ITS ---
Anes - Initial Pre Proc Eval Procedure: Operation Date: 12/01/24 12:00 Proposed Procedures p Bilateral Breast Implant Exchange - Garry Lara MD Date/Time: 12/01/24 11:39 Surgeon: Garry Lara MD Pre Op Diagnosis: Hx of Breast Aug Patient Data Age: 43 Gender: F Height: 1.63 m Weight: 59 kg Last Vital Signs Temp 37.2 C 12/01/24 10:45 Pulse 77 12/01/24 10:45 Resp 16 12/01/24 10:45 BP 132/79 12/01/24 10:45 Pulse Ox 100 12/01/24 10:45 O2 Del Method Room Air 12/01/24 10:45 Allergies Allergy/AdvReac Type Severity Reaction Status Date / Time amoxicillin (From Augmentin) Allergy rash Verified 11/22/24 10:22 clavulanic acid (From Allergy rash Verified 11/22/24 10:22 Augmentin) Home Medications ?Medication ?Instructions ?Recorded ?Confirmed ?Type progesterone 50 mg/mL 100 mg IM DAILY 11/22/24 History intramuscular oil testosterone 10 mg/0.5 5 mg transdermal DAILY 11/2211/22/24 History gram/actuation transdermal gel pump Patient hx anesthesia problems: none Family hx anesthesia problems: none Results Review: All pre-operative results and documents have been reviewed as part of the pre- operative evaluation. [facility] Surgical History Surgical History History of breast augmentation 2011 History of endoscopy 2010 Family History Family History Mother Hypertension Sibling Hypertension Social History Social History Smoking packs per day: 1 Smoking cigarettes per day: 20.0 Years smoked: 20 Smoking pack-years: 20.00 Smoking status: Former smoker Tobacco type: cigarettes Additional smoking assessment comments: STOPPED 2022 Alcohol intake: current Drinks per week: 10 Substance use: never Living arrangements: with family Anes - Eval Final PreProcedure Day of Procedure 12/01/24 11:39 Patient weight: normal Heart: regular rate and rhythm Lungs: clear to auscultation Airway: Mallampati scale class II Neurological: alert and oriented Last oral intake: >/= 8 hours ASA classification: II Emergent: no Anesthetic plan: proceed Anesthesia type and monitoring: general LMA and standard monitoring Results Review: All pre-operative results and documents have been reviewed as part of the pre- operative evaluation. Informed Consent: The patient's anesthetic plan and its attendant risks and benefits were discussed with the patient/family/POA. Questions were solicited and answers provided to the satisfaction of the patient/family/POA.
[2024-12-01 11:40] LABS: BEDSIDEPREGUCG Negative (Negative)
[2024-12-01] MEDS: NACL 0.9% IRRIG POUR BOTTLE 900 ML, GENTAMICIN SULFATE INJ 160 MG, CLINDAMYCIN PHOS INJ... IRRIGATION (11:49)
[2024-12-01] MEDS: LIDO 1%/EPINEPHRINE 1:100,000 20 ML VIAL 30 ML INFILTRATE (11:49)
[2024-12-01] MEDS: ceFAZolin 2 GM in SODIUM CHLORIDE 0.9% IV 50 ML 100 ML IVPB (11:49)
[2024-12-01] MEDS: LACTATED RINGERS 1,000 ML 30 ML IV CONT ×2 (12:53)
[2024-12-01] MEDS: fentaNYL CITRATE INJ (*CRX) 100 MCG/2 ML VIAL 25 MCG IV PUSH ×4 (13:06→13:25)
[2024-12-01] MEDS: oxyCODONE HCL (*CRX) 5 MG TAB IR PO (13:38)
== END 2024-12-01 14:04 | disposition home or self-care (01) ==
PROVIDERS: Anesthesiology; PCP Physician Assistant Medical; Visit Provider Surgery Plastic and Reconstructive Surgery
PROC: (CPT 19342; principal; 2024-12-01 12:00)
DX: T85.41XA Breakdown (mechanical) of breast prosthesis and implant, initial encounter (principal); Y83.8 Other surgical procedures as the cause of abnormal reaction of the patient, or of later complication, without mention of misadventure at the time of the procedure; Z87.891 Personal history of nicotine dependence
CPT/HCPCS: 19370; 19325; 93005; J0690; A9270; J1100; J1580; J2003; J2004; J2250; J2405; J2704; J3010; J7120